=== PATIENT | male | born 1980 | race Caucasian/White ===

== ENCOUNTER 2018-01-11 10:21 | Emergency (ER) | payer OTHER ==
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
[2018-01-11] MEDS ORDERED: Diphtheria,Pertussis(Acell),Tetanus Vaccine 0.5 ML Syringe IM ONE (11:49)
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
== END 2018-01-11 12:03 | disposition home or self-care (01) ==
LOC: MW.ED 10:21
DX: S16.1XXA Strain of muscle, fascia and tendon at neck level, initial encounter (principal); S00.83XA Contusion of other part of head, initial encounter; S20.212A Contusion of left front wall of thorax, initial encounter; M25.511 Pain in right shoulder; Z23 Encounter for immunization; Z88.8 Allergy status to other drugs, medicaments and biological substances; V29.50XA Motorcycle passenger injured in collision with unspecified motor vehicles in traffic accident, initial encounter
CPT/HCPCS: 70450; 71045; 72125; 73030; 90471; 90715; 93005; 99284; G0390